=== PATIENT | female | born 1955 | race African-American/Black ===

== ENCOUNTER 2017-01-28 06:26 | Day surgery (SDC) | payer BC ==
[~2017-01-28 06:26] MED LIST: Buffered Lidocaine 0.9% SYRIN* 5 ML/SYR SYRINGE ONE; Dexamethasone IV* 4 MG/ML 1 ML (4 MG) IV SLOW PU ONE; Dexamethasone IV* 4 MG/ML 1 ML (4 MG) ONE; Famotidine IV* 10 MG/ML 2 ML (20 mg) IV ONE; Famotidine IV* 10 MG/ML 2 ML (20 mg) ONE; ceFAZolin 2 GM PREMIX(*) 2 GM/50 ML BAG IVPB ONE
[2017-01-28] MEDS ORDERED: Bupivacaine 0.25% EPI 200,000* 30 ML SDV ONE (07:24)
[2017-01-28] MEDS ORDERED: fentaNYL* 50 MCG/ML 2 ML VIAL (100 MCG VIAL) ONE (07:28)
[2017-01-28] MEDS ORDERED: Lidocaine 2% PF * 5 ML VIAL ONE (07:28)
[2017-01-28] MEDS ORDERED: Propofol* 10 MG/ML 20 ML BTL IV PUSH ONE (07:28)
[2017-01-28] MEDS ORDERED: Midazolam* 1 MG/ML 2 ML VIAL (2 MG) ONE (07:29)
[2017-01-28] MEDS ORDERED: Ketorolac INJ* 30 MG/ML 1 ML VIAL IV PRN (07:38)
[2017-01-28] MEDS ORDERED: fentaNYL* 50 MCG/ML 2 ML VIAL (100 MCG VIAL) IV PRN (07:38)
[2017-01-28] MEDS ORDERED: PROCHLORPERAZINE INJ 5 MG/ML 2 ML VIAL IV PRN (07:38)
[2017-01-28] MEDS ORDERED: HYDROcodone/ACETAMIN 5-325 MG* 1 TAB PO PRN (07:38)
[2017-01-28] MEDS ORDERED: oxyCODONE/Acetamin 5/325 MG* TAB PO PRN (07:38)
[2017-01-28] MEDS ORDERED: Ondansetron INJ* 2 MG/ML VIAL ONE (08:08)
[2017-01-28] MEDS ORDERED: EPHEDrine (Pressors)* 50 MG/ML VIAL ONE (08:31)
--- NOTE | 2017-01-28 08:49 | SURGPN ---
Brief Operative Note - Surgery Procedures: Procedures Pre-OP Diagnoses: chronic cholecystitis, h/o hepatitis Post-op Diagnosis: same Procedure: Laparoscopic cholecystectomy, liver biopsy Surgeon: Batool Fajardot: Tyesha Lackeythesidomenica: SAMUEL Chen EBL: minimal IVF: 1200LR Specimen: 1.gallbladder 2.primo-cut liver bx Drains: none
[2017-01-28] MEDS ORDERED: Flumazenil* 0.1 MG/ML 5 ML MDV ONE (09:15)
[2017-01-28] MEDS ORDERED: Ketorolac INJ* 30 MG/ML 1 ML VIAL ONE (10:11)
[2017-01-28] MEDS ORDERED: oxyCODONE/Acetamin 5/325 MG* TAB ONE (10:30)
[2017-01-28 11:28] VITALS: BP 158/89
--- NOTE | 2017-01-28 14:30 | OP ---
CC: Dr. Herrera Reese; Dr. Nery Colon; [facility] * DATE OF OPERATION: 01/28/17 - [facility] DATE OF : 53 SURGEON: Zeb Renae MD MATERIAL SPECIALIST: Veronika Arambula NP ANESTHESIOLOGIST: Dr. Ana Paula Chen. ANESTHESIA: General anesthesia. PRE-OP DIAGNOSES: Chronic cholecystitis and cholelithiasis, and history of hepatitis. POST-OP DIAGNOSES: Chronic cholecystitis and cholelithiasis, and history of hepatitis. OPERATIVE PROCEDURE: Laparoscopic cholecystectomy and William-Cut liver biopsy. ESTIMATED BLOOD LOSS: Minimal. IV FLUIDS: 1200 cc of lactated Ringer's given. DRAINS: None. SPECIMENS: 1. Gallbladder. 2. William-Cut biopsy of liver. The patient tolerated the procedure well. DESCRIPTION OF PROCEDURE: The patient was identified in the preoperative area. Case was discussed with her again. Consent signed. She agreed to proceed with planned procedure, understanding the risks, benefits, and alternatives, as well as the possible complications. The patient was brought to the operating room, placed on the operating table in supine position. Preoperative antibiotics were given. Sequential devices were placed on bilateral lower extremities and general anesthesia was induced. The patient's abdomen was prepped and draped in a standard surgical fashion. A time - out was performed. Folds of the umbilicus were elevated anteriorly and a Veress needle was inserted into the abdominal cavity, which was then allowed to insufflate to a pressure of 15 mmHg. The patient tolerated the insufflation well. An umbilical incision was then made and a 5-mm trocar was inserted. Laparoscope was inserted through this. There was no evidence of injury from the trocar insertion or from the Veress needle, which was then removed. Additional trocars were then placed in the following position: A 12-mm in the subxiphoid area and two 5-mm along the right costal margin. Table was repositioned. Fundus of the gallbladder was grasped, elevated above the liver. Infundibulum was identified and retracted towards the right lower quadrant. This exposed Calot's triangle. Dissection was then carried of the lateral aspect of the peritoneum and medial aspect. The cystic duct and cystic artery were isolated. The cystic duct was triply clipped and ligated. The cystic artery was doubly clipped and ligated and the gallbladder was removed from the liver bed, placed in an endoscopic retrieval bag. Review of the cystic duct stump and cystic artery stump showed no bleeding or bile leak. Attention was then turned towards the liver. Liver was within normal limits. It did not show any significant nodular pattern or lesion. A William-Cut biopsy was then taken, a core off of the right lobe. Hemostasis was achieved with electrocautery. Table was repositioned back to neutral and the gallbladder was removed through the subxiphoid port site after extending the incision. Abdomen was allowed to collapse. Trocars were removed under direct vision. All 4 skin incisions were reapproximated with 4-0 Monocryl subcuticular sutures followed by sterile dressings. [id number]/[facility] #: [id number] MARIELY
== END 2017-01-28 11:10 | disposition home or self-care (01) ==
LOC: OR 06:26
PROVIDERS: ATTEND Surgery
DX: K80.10 Calculus of gallbladder with chronic cholecystitis without obstruction (principal); B18.2 Chronic viral hepatitis C; Z87.891 Personal history of nicotine dependence; Z88.8 Allergy status to other drugs, medicaments and biological substances
CPT/HCPCS: 88304; 88307; 88313; A9270-GY; J0690; J1100; J1885; J2250; J2405; J2704; J3010

== ENCOUNTER 2019-09-24 09:22 | Emergency (ER) | payer MEDICARE, BC ==
--- OUTSIDE RECORDS SUMMARY | 2019-09-24 09:33 | XMS REPORT | Continuity of Care Document ---
:1955 External Reference #:[id number] Author Name Henrietta Melvin NP (transmitted by agent of provider Maryjo Winslow) Address [address] [address] Care Team Providers Name Role Phone Nery Colon MD - Cardiovascular Care Team Information Data Developer [phone] Disease Adriano Rose MD - Orthopaedic Care Team Information Data Developer Surgery Zeb Renae MD - Surgery Care Team Information Data Developer [phone] Sabine Bueno MD - Obstetrics & Care Team Information Data Developer [phone] Gynecology Davie Kahn MD - Hematology Care Team Information Data Developer [phone] Larissa Parkinson M.D. - Family Medicine Care Team Information Data Developer [phone] Julito Stone MD - Sports Medicine Care Team Information Data Developer Problems Active Problems Provider Date Neoplasm of retroperitoneum Herrera Reese M.D.,FACP Onset: 04/11/2015 Note: RT pleural cavity, monitored Dr. Torre Chronic hepatitis C Herrera Reese M.D.,FACP Onset: 12/07/2013 Note: NEG VL post Harvoni Localized, primary osteoarthritis of Herrera Reese M.D.,FACP Onset: the pelvic region and thigh Benign essential hypertension Herrera Reese M.D.,FACP Onset: 12/13/2007 Migraine with typical aura Herrera Reese M.D.,FACP Onset: 12/28/2008 Degeneration of lumbar intervertebral Pam Zuñiga, N.P. Onset: 06/2012 disc Lumbosacral spondylosis without Pam Zuñiga N.P. Onset: 09/03/2011 myelopathy Cardiomegaly [place] ECHO Schedule Onset: 11/22/2012 Uterine leiomyoma Herrera Reese M.D.,FACP Onset: 04/11/2015 Localized, primary osteoarthritis of Aditi Oh M.D. Onset: 10/08/2016 the shoulder region Prosthetic arthroplasty of the hip Aditi Oh M.D. Onset: 10/08/2016 Cholecystectomy Herrera Reese M.D.,FACP Onset: 01/26/2018 Note: w/ post-soledad diarrhea Cardiomyopathy Nery Colon M.D. Onset: 06/17/2019 Electrocardiogram abnormal Nery Colon M.D. Onset: 06/17/2019 Social History Type Date Description Comments Sex Unknown Tobacco Use Start: Unknown Quit 1983 ETOH Use 10/15/2018 Never used alcohol Tobacco Use Start: Unknown End: Patient is a former 13 years. Aged Unknown smoker 14-28. 1ppd Recreational Drug Use Formerly used IV drugs sporadically Recreational Drug Use Formerly used Cocaine sporadically Smoking Status Reviewed: 09/20/19 Patient is a former 13 years. Aged smoker 14-28. 1ppd Exercise Type/Frequency Exercises sporadically Allergies, Adverse Reactions, Alerts Active Allergies Reaction Severity Comments Date Catapres Hives 12/13/2007 Lisinopril 12/13/2007 Hydralazine visual disturbance 05/16/2015 Lisinopril 07/26/2019 Clonidine Hydrochloride 07/26/2019 Hydralazine Hydrochloride 07/26/2019 Inactive Allergies NKDA 12/13/2007 Medications Active Medications SIG Qnty Indications Ordering Provider Date Diltiazem HCL ER take 1 tablet by 30caps I10 Henrietta Melvin NP 09/20/2019 mouth daily. 120mg Caps ER 12HR Irbesartan-Hydrochlo 2 tablets by 60tabs Henrietta Melvin NP 08/25/2019 rothiazide mouth every day 150-12.5mg Tablets Blood Pressure use daily to 1units Henrietta Melvin NP 07/14/2019 Monitor Auto monitor bp daily Inflate as needed.( adult Misc regular size cuff) Carvedilol 1 by mouth in the 180tabs I10 Nery Colon, 05/16/2019 3.125mg morning and 2 M.D. Tablets tablets by mouth at night Blood Pressure use daily or as 1units Herrera Barragan 05/02/2015 Monitor Auto directed Bettye Reese,FACP Inflate [facility] Alprazolam 1 every night at 20tabs F41.9 Herrera Barragan 12/28/2008 0.5mg bedtime as needed Bettye Reese,FACP Tablets Meloxicam Take 1 Tablet By Unknown 15mg Mouth Every Day Tablets -- Maximum Daily Dose Of 1 Per Day History Medications Irbesartan-Hydrochlorothiazide 1 tab by 30tabs Roderick Barragan 07/14/2019 - 300-12.5mg Tablets mouth every Brand, M.DChandler 08/25/2019 day Acetaminophen 2 tabs by 90tabs M16.1 Larissa Parkinson, 04/18/2019 - 325mg Tablets mouth every 1 MD 07/13/2019 6 hours as needed pain, MDD 6 tablets a day Medications Administered in Office Medication SIG Qnty Indications Ordering Provider Date Depomedrol 80MG Aditi Oh M.D. 09/27/2014 Injection PPD Injection Nurse Visit [place] 06/09/2011 Immunizations CPT Code Status Date Vaccine Lot # [id number] Given 04/18/2019 Pneumonia Vaccine [id number] Given 11/17/2013 Hepatitis A Vaccine Adult Dosage [id number] Given 03/18/2011 Tdap - Tetanus/Diptheria/Acellular Pertussis [id number] Refused 05/28/2011 Influenza Virus 3Yrs & Over 10018 Refused 06/28/2010 Influenza Virus 3Yrs & Over Vital Signs Date Vital Result Comment 09/20/2019 3:15pm Height 62.5 inches 5'2.50" Weight 134.25 lb without boots Heart Rate 70 /min Radial,regular BP Systolic Sitting 162 mmHg Ra, reg cuff BP Diastolic Sitting 82 mmHg Ra, reg cuff BP Systolic Standing 153 mmHg Ra sitting, home unit BP Diastolic Standing 91 mmHg Ra sitting, home unit BMI (Body Mass Index) 24.2 kg/m2 Ejection Fraction >65% echo 09/09/16 08/18/2019 1:46pm Height 62.5 inches 5'2.50" Weight 133.00 lb without shoes Heart Rate 72 /min BP Systolic Sitting 150 mmHg Lue (regular cuff) BP Diastolic Sitting 88 mmHg Lue (regular cuff) BP Systolic Standing 160 mmHg BP Diastolic Standing 90 mmHg BMI (Body Mass Index) 23.9 kg/m2 Results Test Acquired Date Facility Test Result H/L Range Note Basic Metabolic 07/15/2019 [facility] Sodium 139 mmol/L Normal 135-[address] [place] [address] [phone] Potassium 3.7 mmol/L Normal 3.5-5.0 Chloride 103 mmol/L Normal 101-111 Co2 Carbon Dioxide 32 mmol/L Normal 22-32 Anion Gap 4 mmol/L Normal 2-11 Glucose 83 mg/dL Normal 70-100 Blood Urea Nitrogen 15 mg/dL Normal 6-24 Creatinine 0.55 mg/dL Normal 0.51-0.95 BUN/Creatinine Ratio 27.3 High 8-20 Calcium 9.4 mg/dL Normal 8.6-10.3 Egfr Non- 110.9 >60 Egfr 134.2 >60 1 Surgical 06/13/2019 [facility] Surgical SEE RESULT [address] [place] [address] [phone] PDFReport [id number] <SEE NOTE> 1 Because ethnic data is not always readily available, this report includes an eGFR for both -Americans and non- Americans. The National Kidney Disease Education Program (NKDEP) does not endorse the use of the MDRD equation for patients that are not between the ages of 18 and 70, are , have extremes of body size, muscle mass, or nutritional status, or are non- or non-. According to the National Kidney Foundation, irrespective of diagnosis, the stage of the disease is based on the level of kidney function: Stage Description GFR(mL/min/1.73 m(2)) 1 Kidney damage with normal or decreased GFR 90 2 Kidney damage with mild decrease in GFR 60-89 3 Moderate decrease in GFR 30-59 4 Severe decrease in GFR 15-29 5 Kidney failure <15 (or dialysis) 2 SEE RESULT BELOW Name: JOCELYN PALENCIA : [address]: Emerson Shea MD Acct: [id number] Unit: [id number] AGE: 64 Location: ENDO Re06/13/19 SEX: F Status: DEP REF SPEC: [id number] FREDIS: 06/13/[address]: Emerson Shea MD REQ: [id number] RECD: 06/13/19 STATUS: WILBERT WADE DR: Larissa Parkinson MD _ ORDERED: LEVEL 4 FINAL DIAGNOSIS Colon, cecum, biopsy: -- Tubular adenoma. -- No high grade dysplasia or malignancy. POST-OPERATIVE DIAGNOSIS Colonoscopy: to cecum - polyp; diverticulosis GROSS DESCRIPTION The specimen is received in formalin labeled, Biopsy Cecal Polyp, and consists of a 0.3 x 0.3 x 0.2 cm tma-pink irregular to polypoid soft tissue fragment which is submitted entirely in one cassette. Signed by and Reported on: Citlaly Maxwell MD 06/14/19 1200 END OF REPORT DEPARTMENT OF PATHOLOGY, [address] [place] [address] Drew Mast M.D. Director [facility] # [id number] Procedures Date Code Description Status 07/14/2019 92350 EKG Tracing & Interpretation Completed 07/07/2019 08389 Treadmill Interp/Report Only Completed 07/07/2019 96678 Stress Test Supervsn W/Out I/R Completed 06/17/2019 90638 EKG Tracing & Interpretation Completed 06/13/2019 [id number] Colonoscopy Completed 05/16/2019 46612 EKG Tracing & Interpretation Completed 04/18/2019 03725 EKG Tracing & Interpretation Completed 10/20/2018 [id number] Bone Mineral Density Test Completed 10/20/2018 [id number] Mammogram Completed 07/06/2018 [id number] Diabetic Retinal Eye Exam Completed 09/16/2017 [id number] Mammogram Completed 08/14/2016 [id number] Mammogram Completed 01/25/2015 [id number] Mammogram Completed 10/31/2013 [id number] Colonoscopy Completed 08/08/2010 [id number] Mammogram Completed Medical Devices Description No Information Available Encounters Type Date Location Provider Dx Diagnosis Office Visit 08/18/2019 [facility] Nurse Visit IC I10 Essential ( primary) 1:30p Of [facility] hypertension Office Visit 07/14/2019 [facility] Henrietta Melvin, I10 Essential ( primary) 2:00p SURVEY TECHNICIAN hypertension Z01.818 Encounter for other preprocedural examination Z79.899 Other snf (current) drug therapy Office Visit 07/13/2019 1:00p [facility] Internal Shona Z01.818 Encounter for other Medicine - MD Ronni preprocedural Ccmob examination M16.11 Unilateral primary osteoarthritis, right hip Office Visit 06/17/2019 8:20a [facility] Nery Colon, I10 Essential (primary) Of [facility] [place] [facility] Bettye hypertension I42.8 Other cardiomyopathies H53.9 Unspecified visual disturbance Z01.810 Encounter for preprocedural cardiovascular examination R94.31 Abnormal electrocardiogram [ECG] [EKG] Office Visit 05/16/2019 2:10p [facility] Nery Colon, I10 Essential (primary) Of [facility] M.D. hypertension I42.8 Other cardiomyopathies R94.31 Abnormal electrocardiogram [ECG] [EKG] Office Visit 03/25/2019 3:15p [facility] Aditi Oh, M25.551 Pain in right at [facility] M.[facility]. hip M16.11 Unilateral primary osteoarthritis, right hip Z96.642 Presence of left artificial hip joint Assessments Date Code Description Provider 09/20/2019 I10 Essential (primary) hypertension Henrietta Melvin NP 09/20/2019 I50.30 Unspecified diastolic (congestive) heart Henrietta Melvin NP failure 08/18/2019 I10 Essential (primary) hypertension Nurse Visit IC 07/14/2019 I10 Essential (primary) hypertension Nery Colon M.D. 07/14/2019 I10 Essential (primary) hypertension Henrietta Melvin NP 07/14/2019 Z01.818 Encounter for other preprocedural examination Henrietta Melvin NP 07/14/2019 Z79.899 Other snf (current) drug therapy Henrietta Melvin NP 07/13/2019 Z01.818 Encounter for other preprocedural examination Shona Rudolph MD 07/13/2019 M16.11 Unilateral primary osteoarthritis, right hip Shona Rudolph MD 07/07/2019 R94.31 Abnormal electrocardiogram [ECG] [EKG] Nery Colon M.D. 06/17/2019 I10 Essential (primary) hypertension Nery Colon M.D. 06/17/2019 I42.8 Other cardiomyopathies Nery Colon M.D. 06/17/2019 H53.9 Unspecified visual disturbance Nery Colon M.D. 06/17/2019 Z01.810 Encounter for preprocedural cardiovascular Nery Colon M.D. examination 06/17/2019 R94.31 Abnormal electrocardiogram [ECG] [EKG] Nery Colon M.D. 05/16/2019 I10 Essential (primary) hypertension Nery Colon M.D. 05/16/2019 I42.8 Other cardiomyopathies eNry Colon M.D. 05/16/2019 R94.31 Abnormal electrocardiogram [ECG] [EKG] Nery Colno M.D. 04/18/2019 Z00.00 Encounter for general adult medical Larissa Parkinson MD examination without abnormal findings 04/18/2019 I10 Essential (primary) hypertension Larissa Parkinson MD 04/18/2019 Z23 Encounter for immunization Larissa Parkinson MD 04/18/2019 R94.31 Abnormal electrocardiogram [ECG] [EKG] Larissa Parkinson MD 04/18/2019 M16.11 Unilateral primary osteoarthritis, right hip Larissa Parkinson MD 03/25/2019 M25.551 Pain in right hip Aditi Oh M.D. 03/25/2019 M16.11 Unilateral primary osteoarthritis, right hip Aditi Oh M.D. 03/25/2019 Z96.642 Presence of left artificial hip joint Aditi Oh M.D. Plan of Treatment Future Appointment(s):01/23/2020 3:00 pm - Nery Colon M.D. at [facility]04/20/2020 4:00 pm - Larissa Parkinson MD at [facility] Internal Medicine - [facility]09/20/2019 - Henrietta Mlevin NPI10 Essential (primary) hypertensionNew Medication:Diltiazem HCL ER 120 mg - take 1 tablet by mouth daily.Follow up: follow up with Dr. Colon in 4-5 months.Recommendations:In the past Diltiazem has helped your blood pressure so we will try this again. Diltiazem can reduce your heart rate as a result if you notice your heart rate goes below 50 beats per minute on your home monitor please call me. Obtain daily blood pressures for 7 days then call me with measurements Should you notice dizziness, lightheadedness or blood pressure is not responding call me.I50.30 Unspecified diastolic (congestive) heart failure Functional Status Description No Information Available Mental Status Description No Information Available Referrals Refer to Reason for Referral Status Appt Date Nery Colon MD asymptomatic, uncontrolled HTN, abnormal EKG Sent [address] [place] [address] [phone]
[2019-09-24] MEDS ORDERED: NS 0.9% 1000 ML** 1,000 ML IV ONE (10:43)
[2019-09-24] MEDS ORDERED: Ketorolac INJ* 30 MG/ML 1 ML VIAL IV PUSH ONE (10:43)
--- NOTE | 2019-09-24 10:43 | ED ---
Abdominal Pain/Female - HPI Summary HPI Summary: This patient is a 64 year old female presenting to [facility] with a chief complaint of right sided abdominal pain. She states she had gallbladder removal 2 years ago without complications. She describes the pain as a sharp, burning pain. She denies n/v/d, CP, SOB, hematuria. She reports mild dysuria. She rates her pain 8 /10 in severity. She denies Hx of kidney stones. She states she fell twice a couple of weeks ago but she did not hurt her side as far as she knows. - History of Current Complaint Chief Complaint: EDAbdPain Stated Complaint: ABD PAIN PER PT Time Seen by Provider: 09/24/19 10:30 Hx Obtained From: Patient Onset/Duration: Lasting Hours Pain Intensity: 8 Pain Scale Used: 0-10 Numeric Location: Discrete At: RUQ, Discrete At: RLQ Allergies/Adverse Reactions: Allergies Allergy/AdvReac Type Severity Reaction Status Date / Time lisinopril Allergy Intermediate Hives Verified 09/24/19 09:26 clonidine Allergy Unknown Itching Verified 09/24/19 09:26 hydralazine Allergy Unknown Verified 09/24/19 09:26 Reaction Details PMH/Surg Hx/FS Hx/Imm Hx Endocrine/Hematology History: Denies: Hx Diabetes, Hx Systemic Lupus Erythematosus Cardiovascular History: Reports: Hx Hypertension, Other Cardiovascular Problems/ Disorders - hx murmur GI History: Reports: Other GI Disorders - gall stones History: Denies: Hx Dialysis, Hx Renal Disease Musculoskeletal History: Reports: Hx Arthritis - lumbar region, Other Musculoskeletal History - osteo arthritis Denies: Hx Rheumatoid Arthritis, Hx Osteoporosis Sensory History: Reports: Hx Cataracts - SURGERY 05/14, 05/21, Hx Contacts or Glasses - GLASSES Denies: Hx Hearing Aid Opthamlomology History: Reports: Hx Cataracts - SURGERY 05/14, 05/21, Hx Contacts or Glasses - GLASSES Neurological History: Reports: Hx Migraine - rare OCCASIONALLY Psychiatric History: Reports: Hx Anxiety - occassionally, none recent - Cancer History Cancer Type, Location and Year: Spinal, dx 2014 Hx Chemotherapy: No Hx Radiation Therapy: No - Surgical History Surgery Procedure, Year, and Place: left hip replacement-2007, cyst removed- right breast @11 yrs of age,. bilat cataract surgery with lens implants, cholecystectomy-01/2017 Hx Anesthesia Reactions: No Infectious Disease History: Yes Infectious Disease History: Reports: Hx Hepatitis - Hep C Denies: Traveled Outside the [place] in Last 30 Days - Family History Known Family History: Negative: Seizure Disorder - Social History Alcohol Use: None Substance Use Type: Reports: None Smoking Status (MU): Former Smoker Amount Used/How Often: smoked for 14 years 1 ppd Review of Systems Negative: Chest Pain Negative: Shortness Of Breath Positive: Abdominal Pain. Negative: Vomiting, Diarrhea, Nausea Positive: dysuria. Negative: hematuria All Other Systems Reviewed And Are Negative: Yes Physical Exam - Summary Physical Exam Summary: Constitutional: Well-developed, Well-nourished, Alert. (-) Distressed Skin: Warm, Dry HENT: Normocephalic; Atraumatic Eyes: Conjunctiva normal Neck: Musculoskeletal ROM normal neck. (-) JVD, (-) Stridor, (-) Tracheal deviation Cardio: Rhythm regular, rate normal, Heart sounds normal; Intact distal pulses; Radial pulses are 2+ and symmetric. (-) Murmur Pulmonary/Chest wall: Effort normal. (-) Respiratory distress, (-) Wheezes, (-) Rales Abd: Soft, (-) Distension, (-) Guarding, (-) Rebound, Normal bowel sounds. Patient tensing abdominal muscles however nontender upon palpation. Musculoskeletal: (-) Edema Lymph: (-) Cervical adenopathy Neuro: Alert, Oriented x3 Psych: Mood and affect Normal Triage Information Reviewed: Yes Vital Signs On Initial Exam: Initial Vitals Temp Pulse Resp BP Pulse Ox 98.5 F 77 16 167/91 100 09/24/19 09:24 09/24/19 09:24 09/24/19 09:24 09/24/19 09:24 09/24/19 09:24 Vital Signs Reviewed: Yes Procedures - Sedation Patient Received Moderate/Deep Sedation with Procedure: No Diagnostics - Vital Signs Vital Signs Temp Pulse Resp BP Pulse Ox 09/24/19 09:24 98.5 F 77 16 167/91 100 - Laboratory Result Diagrams: 09/24/19 10:49 09/24/19 10:49 Lab Statement: Any lab studies that have been ordered have been reviewed, and results considered in the medical decision making process. - CT Abd/Pel CT Interpretation Completed By: Radiologist Summary of CT Findings: 1. Unchanged right posterior pleural based mass. 2. Unchanged retroperitoneal lymphadenopathy. 3. Unchanged left adnexal/uterine mass. 4. Moderate stool volume. 5. Status post cholecystectomy. 6. Severe right hip osteoarthropathy. ED Provider has reviewed this report. Abdominal Pain Fem Course/Dx - Course Course Of Treatment: This patient is a 64 year old female presenting to [facility] with a chief complaint of right sided abdominal pain. Physical exam was unremarkable. CT abd/pel reveals 1. Unchanged right posterior pleural based mass. 2. Unchanged retroperitoneal lymphadenopathy. 3. Unchanged left adnexal/ uterine mass. 4. Moderate stool volume. 5. Status post cholecystectomy. 6. Severe right hip osteoarthropathy. Patient given Fleets enema at discharge for home use. Plan for discharge was discussed with the patient and she was agreeable with this plan. Abdominal CT negative for acute pathology. Moderate amount of stool noted. Patient notes that she'll go several days between BMs. Offered Fleet enema at discharge for home use, patient agreed to try. Also encouraged patient to remain well-hydrated and increase dietary fiber to assist with helping all habits. Patient comfortable with discharge home. Will follow up with PCP next week. - Diagnoses Provider Diagnoses: Abdominal pain, Constipation Discharge ED - Sign-Out/Discharge Documenting (check all that apply): Patient Departure - Discharge - Discharge Plan Condition: Stable Disposition: HOME Patient Education Materials: Constipation (ED), Acute Abdominal Pain (ED) Referrals: Larissa Parkinson MD [Primary Care Provider] - 2 Days Additional Instructions: Return to ED with new or worsening symptoms. - Billing Disposition and Condition Condition: STABLE Disposition: Home - Attestation Statements Document Initiated by William: Yes Documenting Jazzyibthalia: Virgil Palacios Provider For Whom William is Documenting (Include Credential): Lit Gloria DO Scribe Attestation: Virgil Treviño scribed for Lit Gloria DO on 09/24/19 at 1350. Scribe Documentation Reviewed: Yes Provider Attestation: The documentation as recorded by the Virgil ricci accurately reflects the service I personally performed and the decisions made by me, Lit Gloria DO Status of Scribe Document: Viewed
[2019-09-24 11:14] LABS: Albumin/Globulin Ratio 1.1 (1-3); BUN/Creatinine Ratio 30.2 (8-20); EGFR African American 140.1 (>60); EGFR Non-African American 115.8 (>60); Globulin 3.7 g/dL (2-4); Potassium 3.8 mmol/L (3.5-5.0); Total Bilirubin 0.7 mg/dL (0.2-1.0); Total Protein 7.7 g/dL (6.4-8.9)
[2019-09-24] MEDS ORDERED: Morphine 4 MG/ML VIAL (1 ml) 4 MG/ML VIAL IV ONE (11:33)
[2019-09-24] MEDS ORDERED: Ondansetron INJ* 2 MG/ML VIAL IV ONE (11:33)
[2019-09-24] MEDS ORDERED: Iohexol 300* (CONTRAST) 10 ML SDV IV ONE (11:38)
[2019-09-24 11:47] LABS: ABS Basophils 0.1 10^3/ul (0-0.2); ABS Eosinophils 0.3 10^3/ul (0-0.6); ABS Lymphocytes 1.5 10^3/ul (1.0-4.8); ABS Monocytes 0.5 10^3/ul (0-0.8); ABS Neutrophils 4.5 10^3/ul (1.5-7.7); Hematocrit 35 % (35-47); Hemoglobin 11.4 g/dL (12.0-16.0); Lymphocyte % 21.4 %; Mean Corpuscular HGB Conc 32 g/dL (31-36); Mean Corpuscular Hemoglobin 23 pg (27-31); Mean Corpuscular Volume 72 fL (80-97); Mean Platelet Volume 8.1 fL (7.4-10.4); Platelet Count 507 10^3/uL (150-450); Red Blood Count 4.92 10^6 /uL (3.70-4.87); Red Cell Distribution Width 15 % (10-15); White Blood Count 6.8 10^3/uL (3.5-10.8)
[2019-09-24] MEDS ORDERED: Sodium Phosphate ADULT ENEMA* 118 ml bottle PR ONE (13:14)
[2019-09-24] MEDS ORDERED: Sodium Phosphate ADULT ENEMA* 118 ml bottle ONE (13:16)
[2019-09-24 13:26] VITALS: BP 180/102
[2019-09-24 15:03] LABS: Urine Appearance Clear; Urine Bilirubin Negative (Negative); Urine Blood Negative (Negative); Urine Color Straw; Urine Glucose Negative (Negative); Urine Ketones Negative (Negative); Urine Nitrite Negative (Negative); Urine Protein Negative (Negative); Urine Specific Gravity 1.013 (1.010-1.030); Urine Urobilinogen Negative (Negative)
== END 2019-09-24 13:24 | disposition home or self-care (01) ==
LOC: ED 09:22
DX: R10.11 Right upper quadrant pain (principal); R10.31 Right lower quadrant pain; K59.00 Constipation, unspecified; R59.0 Localized enlarged lymph nodes; R30.0 Dysuria; R91.1 Solitary pulmonary nodule; N85.9 Noninflammatory disorder of uterus, unspecified; M16.11 Unilateral primary osteoarthritis, right hip; I10 Essential (primary) hypertension; Z90.49 Acquired absence of other specified parts of digestive tract; Z96.642 Presence of left artificial hip joint; Z88.8 Allergy status to other drugs, medicaments and biological substances; Z87.891 Personal history of nicotine dependence
CPT/HCPCS: 36415; 74177; 80053; 81003; 83690; 85025; 96361; 96374; 96375; 99282; A9270-GY; J1885; J2270; J2405; Q9967

== ENCOUNTER 2020-12-25 11:35 | Observation (INO) ==
[~2020-12-25 11:35] MED LIST changes: -Buffered Lidocaine 0.9% SYRIN* 5 ML/SYR SYRINGE ONE; +Buffered Lidocaine 1% SYRIN 1 ml INTRADERM ONE; -Dexamethasone IV* 4 MG/ML 1 ML (4 MG) IV SLOW PU ONE; -Dexamethasone IV* 4 MG/ML 1 ML (4 MG) ONE; +Famotidine IV 10 MG/ML 2 ml VIAL (20 mg) IV ONE; -Famotidine IV* 10 MG/ML 2 ML (20 mg) IV ONE; -Famotidine IV* 10 MG/ML 2 ML (20 mg) ONE; +Glycopyrrolate IV 0.2 MG/ML 1 ML VIAL ONE; +Lactated Ringers 1000 ml BAG 1,000 ML IV SCH; +Lidocaine 2% PF 5 ML VIAL ONE; +Midazolam 2 mg/2 ml VIAL 1 mg/ml 2 ml VIAL (2 mg) ONE; +Propofol 10 MG/ML 20 ML BTL ONE; -ceFAZolin 2 GM PREMIX(*) 2 GM/50 ML BAG IVPB ONE
[2020-12-25] MEDS ORDERED: Ondansetron 4 mg VIAL 2 MG/ML 2 ml VIAL ONE (11:40)
[2020-12-25] MEDS ORDERED: Dexamethasone IV 4 MG/ML VIAL 1 ml VIAL ONE ×2 (11:40→13:24)
[2020-12-25] MEDS ORDERED: ceFAZolin 2 GM PREMIX 2 GM/50 ML BAG ONE (12:04)
[2020-12-25] MEDS ORDERED: Famotidine IV 10 MG/ML 2 ml VIAL (20 mg) ONE (12:04)
[2020-12-25 12:54] LABS: INR 1.23 (0.82-1.09)
[2020-12-25] MEDS ORDERED: Rocuronium 50 mg VIAL 10 mg/ml 5 ml VIAL (50 mg) ONE ×2 (13:24→17:00)
[2020-12-25] MEDS ORDERED: HYDROmorphone 1 MG/1 ML SYRINGE ONE ×2 (13:25→19:21)
[2020-12-25] MEDS ORDERED: Ropivacaine 5 MG/ML 20 ML VIAL 0.5% (100 MG) ONE (14:35)
[2020-12-25] MEDS ORDERED: Morphine 2 MG/ML SYRINGE IV PRN (16:39)
[2020-12-25] MEDS ORDERED: oxyCODONE/Acetamin 5/325 mg TAB PO PRN ×2 (16:39)
[2020-12-25] MEDS ORDERED: Ondansetron ODT 4 mg TAB 4 MG TAB PO PRN (16:39)
[2020-12-25] MEDS ORDERED: Lactulose 30 ml UDC PO PRN (16:39)
[2020-12-25] MEDS ORDERED: diPHENhydraMINE IV 50 MG/ML 1 ml VIAL (BENADRYL) IV PRN (16:39)
[2020-12-25] MEDS ORDERED: Magnesium Hydroxide LIQ 30 ML UDC PO PRN (16:39)
[2020-12-25] MEDS ORDERED: diPHENhydraMINE 25 mg TAB PO PRN (16:39)
[2020-12-25] MEDS ORDERED: Ondansetron 4 mg VIAL 2 MG/ML 2 ml VIAL IV PRN (16:39)
[2020-12-25] MEDS ORDERED: Naloxone 0.4 mg VIAL 0.4 mg/ml 1 ml VIAL IV PRN (16:45)
[2020-12-25] MEDS ORDERED: DiMENhydriNATE IV 50 mg/ml 1 ml VIAL IV PUSH PRN (16:45)
[2020-12-25] MEDS ORDERED: Acetaminophen IV 1 GM/100ML 1,000 MG/100 ML VIAL IVPB ONE (16:45)
[2020-12-25] MEDS ORDERED: HYDROcodone/ACETAMIN 5/325 mg TAB PO PRN (16:50)
[2020-12-25] MEDS ORDERED: Lactated Ringers 1000 ml BAG 1,000 ML IV SCH ×3 (17:00→19:00)
[2020-12-25] MEDS: HYDROmorphone 1 MG/1 ML SYRINGE IV PRN ×3 (19:23→19:50)
[2020-12-25] MEDS: Magnesium Hydroxide LIQ 30 ML UDC PO SCH (22:01)
[2020-12-26] MEDS: ceFAZolin 1 GM ADVAN 1 GM in NS 0.9% 50 ML 50 ML IVPB SCH ×3 (00:34→15:30)
[2020-12-26] MEDS: HYDROcodone/ACETAMIN 5/325 mg TAB PO PRN ×3 (03:19→14:05)
[2020-12-26 04:59] LABS: Hematocrit 31 % (35-47); Hemoglobin 10.1 g/dL (12.0-16.0); Mean Platelet Volume 8.4 fL (7.4-10.4); Platelet Count 437 10^3/uL (150-450)
[2020-12-26 05:13] LABS: Calcium 8.5 mg/dL (8.6-10.3); Potassium 3.7 mmol/L (3.5-5.0)
[2020-12-26] MEDS ORDERED: Vitamin THERAPEUTIC TAB PO SCH (09:00)
[2020-12-26] MEDS: Magnesium Hydroxide LIQ 30 ML UDC PO SCH (09:01)
[2020-12-26 16:21] VITALS: BP 152/65
== END 2020-12-26 16:30 | disposition home or self-care (01) ==
LOC: OR 11:35 → SSU 11:35
PROVIDERS: ADMIT Orthopaedic Surgery Adult Reconstructive Orthopaedic Surgery; ATTEND Orthopaedic Surgery Adult Reconstructive Orthopaedic Surgery